=== PATIENT | male | born 1980 | race Native Hawaiian/Other Pacific Islander ===

== ENCOUNTER 2020-03-27 11:40 | Outpatient (CLI) | payer OTHER | END 2020-03-27 22:25 | disposition home or self-care (01) | LOC: RAD 11:40 | DX: J20.8 Acute bronchitis due to other specified organisms (principal) ==

== ENCOUNTER 2020-05-28 19:32 | Emergency (ER) | payer OTHER ==
[~2020-05-28] VITALS: Ht 177.8 cm; Wt 104.3 kg
[2020-05-28 20:35] LABS: PLATELET COUNT 217 K/uL (142-355)
[2020-05-28 20:51] LABS: POTASSIUM 4.5 mmol/L (3.6-5.2)
[2020-05-28 20:57] VITALS: BP 126/82; TEMP 98.2
== END 2020-05-28 21:15 | disposition home or self-care (01) ==
LOC: ED 19:33
PROVIDERS: Family Medicine
DX: F11.90 Opioid use, unspecified, uncomplicated (principal)
CPT/HCPCS: 36415; 80053; 80329; 82805; 84484; 85027; 99283